=== PATIENT | female | born 1975 | race Caucasian/White ===

== ENCOUNTER 2018-09-24 05:25 | Inpatient (IN) | payer BC ==
[2018-09-24 06:02] VITALS: BMI 34.0
[2018-09-24] MEDS ORDERED: Ondansetron PF 4 MG/2 ML Vial IVP PRN ×2 (06:03→08:34)
[2018-09-24] MEDS ORDERED: Butorphanol Tartrate 1 MG/ML VIAL SLOW IVP PRN (06:03)
[2018-09-24] MEDS ORDERED: Docusate 100 MG CAP PO PRN (06:03)
[2018-09-24] MEDS ORDERED: Bicitra 30 ML UDCUP PO SCH (06:03)
[2018-09-24] MEDS ORDERED: Lactated Ringer's 1,000 ML IV SCH (06:03)
[2018-09-24] MEDS ORDERED: Promethazine HCl 25 MG/ML VIAL IM PRN ×2 (06:03→08:34)
[2018-09-24] MEDS ORDERED: CEFAZOLIN 2 GM/50 ML BAG IVPB SCH (06:15)
[2018-09-24 06:31] LABS: Hemoglobin 11.9 g/dL (12.0-16.0); Mean Corpuscular HGB CONC 33.6 g/dL (32.0-36.0); Mean Corpuscular Hemoglobin 29.5 pg (27.0-31.0); Mean Corpuscular Volume 87.7 fL (78.0-98.0); Mean Platelet Volume 7.8 fL (7.4-10.4); Platelet Count 266 thou/uL (130-400); RBC Distribution Width 12.1 % (11.5-14.5); Red Blood Cell (RBC) Count 4.03 mill/uL (4.20-5.40); White Blood Cell (WBC) Count 14.7 thou/uL (4.8-10.8)
[2018-09-24] MEDS ORDERED: Morphine PF 1 MG/ML SYR ONE (07:01)
[2018-09-24] MEDS ORDERED: Ondansetron PF 4 MG/2 ML Vial ONE ×2 (07:02→09:39)
[2018-09-24] MEDS ORDERED: Bupivacaine 0.75% W/DEXTROSE 8.25% 2 ML AMP ONE (07:02)
[2018-09-24] MEDS ORDERED: Oxytocin 10 UNITS/ML VIAL ONE (07:02)
[2018-09-24] MEDS ORDERED: ePHEDrine/0.9% NaCl/PF SYRINGE 50 mg/10 ml ONE (07:02)
[2018-09-24 07:21] LABS: HBSAg Index 0.25 S/CO (0-0.99); Hep B Surf Ag Non-Reactive S/CO (NonReactive); Syphilis Antibody Nonreactive (Nonreactive); Syphilis Antibody Index 0.07 S/CO (<1.00 Non-Reactive)
[2018-09-24] MEDS ORDERED: Meperidine HCl/PF 25 MG/ML VIAL SLOW IVP PRN (08:33)
[2018-09-24] MEDS ORDERED: Ondansetron HCl/PF 4 MG/2 ML Vial IVP PRN (08:33)
[2018-09-24] MEDS ORDERED: HYDROmorphone 2 MG/ML VIAL SLOW IVP PRN (08:33)
[2018-09-24] MEDS ORDERED: L&D-Morphine 4 MG/ML VIAL SLOW IVP PRN (08:33)
[2018-09-24] MEDS ORDERED: diphenhydrAMINE 50 MG/ML VIAL IVP PRN (08:34)
[2018-09-24] MEDS ORDERED: Naloxone HCl 0.4 mg/ml Vial IVP PRN ×2 (08:34)
[2018-09-24] MEDS ORDERED: Ketorolac Tromethamine 30 MG/ML VIAL IVP PRN (08:34)
[2018-09-24] MEDS ORDERED: Eucerin (Mineral Oil/Petrolatum,White) 30 gm Jar TOP PRN (08:34)
[2018-09-24] MEDS ORDERED: Promethazine HCl 25 MG SUPP PR PRN (08:34)
[2018-09-24] MEDS ORDERED: Naloxone HCl 0.4 mg/ml Vial IV PRN (08:34)
[2018-09-24] MEDS ORDERED: Acetaminophen 325 MG TAB PO PRN (08:43)
[2018-09-24] MEDS ORDERED: Misoprostol 200 MCG TAB PR PRN (08:43)
[2018-09-24] MEDS ORDERED: Lanolin Ointment 7 GM TUBE TOP PRN (08:43)
[2018-09-24] MEDS ORDERED: Adacel (T-DAP) 0.5 ML SYRINGE IM ONE (08:43)
[2018-09-24] MEDS ORDERED: diphenhydrAMINE 25 MG CAP PO PRN (08:43)
[2018-09-24] MEDS ORDERED: Bisacodyl 10 MG SUPP PR PRN (08:43)
[2018-09-24] MEDS ORDERED: Ketorolac Tromethamine 30 MG/ML VIAL IVP SCH (08:45)
[2018-09-24] MEDS ORDERED: NS / Oxytocin 40 units/1000ml 1,000 ML IV SCH (08:45)
[2018-09-24] MEDS ORDERED: Communication Order-Pharmacy FS SCH (08:45)
[2018-09-24] MEDS: Ondansetron PF 4 MG/2 ML Vial IVP PRN ×2 (09:41→16:50)
[2018-09-24] MEDS ORDERED: Promethazine HCl 25 MG/ML VIAL ONE (10:26)
[2018-09-24] MEDS: Ferrous Sulfate 325 MG TAB PO SCH ×2 (12:11→23:34)
[2018-09-24] MEDS: Prenatal Vitamin 1 TAB PO SCH (12:11)
[2018-09-24] MEDS: Docusate Calcium (SURFAK) 240 MG CAP PO SCH ×2 (12:11→23:33)
[2018-09-24] MEDS: Ibuprofen 800 MG TAB PO SCH ×2 (13:43→23:34)
[2018-09-24] MEDS: Lactated Ringer's 1,000 ML IV SCH ×2 (14:18→22:16)
--- NOTE | 2018-09-24 15:36 | OP ---
DATE OF PROCEDURE: 09/24/2018 ATTENDING STAFF PHYSICIAN: Antonia Vaughn MD SURGEONS: 1. Antonia Vaughn MD. 2. Shalonda Torres DO. MARKETING ADMINISTRATIVE ASSISTANT SURGEON: Nury Ordaz MD PREOPERATIVE DIAGNOSES: 1. Term intrauterine at 39 and 2/7th weeks. 2. Prior section x3. 3. Declines trial of labor. POSTOPERATIVE DIAGNOSES: 1. Term intrauterine at 39 and 2/7th weeks. 2. Prior section x3. 3. Declines trial of labor. PROCEDURE: Repeat low-transverse section. ANESTHESIA: Spinal catheterization. FINDINGS: 1. Minimal scarring and adhesions. 2. Vigorous male infant, 8 pounds 4 ounces, Apgars 8 and 9. 3. Normal uterus, tubes, and ovaries. COMPLICATIONS: None. SPECIMENS REMOVED: Cord blood. ESTIMATED BLOOD LOSS: 500 mL. DESCRIPTION OF PROCEDURE: After thorough consent and counseling, Mrs. Lowry was taken to the operating room and an adequate level of anesthesia was obtained via spinal catheterization. The patient was prepped and draped in the usual sterile fashion for abdominal surgery. A Baldwin was placed in the bladder, which was draining clear urine. Attention was then turned to perform the repeat low-transverse section (LTCS). A Pfannenstiel incision was made and the old scar was excised. The incision was carried sharply to the fascia, which was also sharply incised. The midline was identified and the rectus muscles were retracted laterally. The abdominal peritoneal cavity was entered with the usual safeguards carried out. Upon entering the abdominal cavity, a retractor was placed. There was dense scarring and adhesions noted to the lower segment in the anterior cul-de-sac. Low-transverse incision was made just above the previous bladder flap. Amniotomy was performed and lightly stained meconium amniotic fluid was noted. The head was delivered and baby was bulb suctioned on the abdomen. Nuchal cord x1 was reduced. The shoulders and body were then delivered in an atraumatic fashion. The cord was doubly clamped and cut and the was handed to the Pediatric Team in attendance for the delivery. The infant was a vigorous viable male, weighing 8 pounds 4 ounces with Apgars 8 and 9 obtained at 1 and 5 minutes respectively. Cord blood was obtained. The placenta was manually removed from the uterus. The uterine cavity was cleared of any remaining clot and fluid. The low-transverse incision was closed with a running locking LigaSure of #1 chromic. Several [id number] LigaSure of #1 chromic were placed to facilitate hemostasis. The incision was carefully inspected and noted to be hemostatic. The posterior cul-de-sac and gutters were inspected and drained of clot and fluid. The uterus, fallopian tubes, and ovaries were carefully inspected and there was no pathology identified. Seprafilm was applied to the anterior aspect of the uterus in a low-transverse incision for adhesion prevention. The uterus was returned to the abdomen and good tone and hemostasis was again appreciated. Lap, sponge, and needle counts were correct. The peritoneum was closed with a running LigaSure of 2-0 Vicryl suture. The rectus muscles were reapproximated at the midline with interrupted LigaSure of 2-0 suture. The fascia was then closed with 2 LigaSure's of 0 Vicryl suture, which were tied in the midline. Good fascial integrity was appreciated. The incision was irrigated with copious amount of warm normal saline. Good hemostasis was noted. The subcutaneous tissue was closed with interrupted LigaSure of 2-0 plain suture. The skin was closed with a subcuticular stitch of 4-0 Monocryl and dressed with Dermabond. Lap, sponge, and needle counts were correct x3. The estimated blood loss during the surgical procedure was approximately 500 mL. TBL to follow. Immediately following the surgery, the patient was taken to the recovery room in good condition. Baby was doing well in the nursery. Immediately following the surgery, we discussed findings of and questions answered. Mother and baby doing well postoperatively. Job ID: [id number]
[2018-09-24] MEDS ORDERED: HYDROcodone/Acetaminophen 5/325 mg Tablet PO PRN (20:45)
[2018-09-24] MEDS ORDERED: Zolpidem Tartrate 5 MG TAB PO PRN (20:45)
[2018-09-24] MEDS ORDERED: Meperidine HCl/PF 25 MG/ML VIAL IM PRN (20:45)
[2018-09-25] MEDS: Ibuprofen 800 MG TAB PO SCH ×3 (05:16→21:41)
[2018-09-25] MEDS ORDERED: Ketorolac Tromethamine 30 MG/ML VIAL IVP SCH (06:00)
[2018-09-25 06:08] LABS: Mean Corpuscular HGB CONC 33.3 g/dL (32.0-36.0); Mean Corpuscular Hemoglobin 29.5 pg (27.0-31.0); Mean Corpuscular Volume 88.7 fL (78.0-98.0); Platelet Count 187 thou/uL (130-400); Red Blood Cell (RBC) Count 3.38 mill/uL (4.20-5.40); White Blood Cell (WBC) Count 11.6 thou/uL (4.8-10.8)
[2018-09-25] MEDS: Ferrous Sulfate 325 MG TAB PO SCH ×2 (08:51→21:41)
[2018-09-25] MEDS: Prenatal Vitamin 1 TAB PO SCH (08:52)
[2018-09-25] MEDS: Docusate Calcium (SURFAK) 240 MG CAP PO SCH ×2 (08:52→21:41)
[2018-09-25] MEDS: Simethicone Chewable 80 MG TAB PO PRN ×2 (08:55→14:15)
[2018-09-25] MEDS: HYDROcodone/Acetaminophen 5/325 mg Tablet PO PRN (12:51)
[2018-09-26 02:11] VITALS: TEMP 97.7
[2018-09-26] MEDS: Ibuprofen 800 MG TAB PO SCH (04:58)
[2018-09-26 07:58] VITALS: BP 108/59
[2018-09-26] MEDS: Ferrous Sulfate 325 MG TAB PO SCH (09:16)
[2018-09-26] MEDS: Prenatal Vitamin 1 TAB PO SCH (09:27)
[2018-09-26] MEDS: Docusate Calcium (SURFAK) 240 MG CAP PO SCH (09:27)
[2018-09-26] MEDS: HYDROcodone/Acetaminophen 5/325 mg Tablet PO PRN (11:59)
== END 2018-09-26 12:50 | disposition home or self-care (01) | DRG 788 ==
LOC: L&D 05:25 → 3SW 11:17
PROVIDERS: ADMIT Obstetrics & Gynecology; ATTEND Obstetrics & Gynecology
PROC: 10D00Z1 Extraction of Products of Conception, Low, Open Approach (ICD-10-PCS; principal; 2018-09-24)
DX: O99.824 Streptococcus B carrier state complicating childbirth (principal); Z3A.39 39 weeks gestation of pregnancy; Z37.0 Single live birth; O34.211 Maternal care for low transverse scar from previous cesarean delivery; O69.81X0 Labor and delivery complicated by cord around neck, without compression, not applicable or unspecified
CPT/HCPCS: 36415; 51702; 85027; 86780; 86850; 86900; 86901; 87340; J1885; J2274; J2405; J2550; J2590; J3490